=== PATIENT | male | born 1995 | race Asian ===

== ENCOUNTER 2022-12-03 03:04 | Observation (INO) ==
[2022-12-03] MEDS ORDERED: KETOROLAC TROMETHAMINE 15 MG/ML VIAL IV STA (03:37)
[2022-12-03] MEDS ORDERED: SODIUM CHLORIDE 0.9% 1000ML 1,000 ML IV ONE (03:37)
[2022-12-03 03:52] LABS: Basophils # (auto) 0.06 K/uL (0-0.2); Basophils % (auto) 0.6 %; Eosinophils # (auto) 0.28 K/uL (0-0.50); Eosinophils % (auto) 2.7 %; Hematocrit (blood only) 41.7 % (42.0-52.0); Hemoglobin 13.6 g/dl (14.0-18.0); Immature Granulocytes # (auto) 0.03 K/uL (0.01-0.20); Immature Granulocytes % (auto) 0.3 %; Lymphocytes # (auto) 3.54 K/uL (1.2-3.4); Lymphocytes % (auto) 34.5 %; Mean Corpuscular Hemoglobin 26.1 pg (25.0-34.0); Mean Corpuscular Hgb Conc 32.6 g/dL (32.0-36.0); Mean Corpuscular Volume 79.9 fL (80.0-100.0); Mean Platelet Volume 9.5 fL (9.4-12.4); Monocytes # (auto) 0.61 K/uL (0.11-0.59); Monocytes % (auto) 5.9 %; Neutrophils # (auto) 5.75 K/uL (1.40-6.50); Platelet Count 385 K/uL (130-400); RDW Coefficient of Variation 14.6 % (11.5-14.5); RDW Standard Deviation 42.4 fL (36.4-46.3); Red Blood Count 5.22 M/uL (4.70-6.10); White Blood Count 10.27 K/ul (4.8-10.8)
[2022-12-03 04:07] LABS: Alanine Aminotransferase 18 U/L (7-52); Albumin Globulin Ratio 1.5 (0.9-2); Albumin Level 4.4 gm/dl (3.4-5.0); Alkaline Phosphatase 69 U/L (34-104); Anion Gap 7 (3-11); Aspartate Aminotransferase 13 U/L (13-39); BUN Creatinine Ratio 17.1 (10-20); Bilirubin,Total 0.3 mg/dl (0.2-1.0); Blood Urea Nitrogen 12 mg/dl (6-23); Calcium 9.6 mg/dl (8.6-10.3); Carbon Dioxide 26 mmol/L (21-32); Chloride 104 mmol/L (98-107); Est GFR (African American) > 150.0 ml/min; Est GFR (Non-African American) 131.2 ml/min; Globulin 2.9 gm/dl (2.5-4.0); Glucose 104 mg/dl (70-99(Fasting)); Lipase 31 U/L (11-82); Potassium 3.9 mmol/L (3.5-5.1); Sodium 137 mmol/L (136-145); Total Protein 7.3 gm/dl (6.0-8.3)
[2022-12-03 04:13] LABS: Appearance Urine Clear (Clear); Bacteria Urine Automated Negative (Negative); Bilirubin Urine Negative (Negative); Blood Urine Negative (Negative); Color Urine Yellow; Epithelial Cell Urine Auto >30 /lpf (0-5); Glucose Urine UA Negative (Negative); Ketones Urine Negative (Negative); Leukocyte Esterase Urine Trace (Negative); Nitrite Urine Negative (Negative); Protein Urine Negative (Negative); Specific Gravity Urine 1.021 (1.000-1.030); Urobilinogen Urine Negative (Negative)
[2022-12-03 04:27] LABS: RBC Urine Automated 0-4 /hpf (0-4)
[2022-12-03] MEDS ORDERED: OPTIRAY 320 125ml IV ONE (04:30)
--- NOTE | 2022-12-03 04:31 | Emergency Department Note ---
ED Provider Note History of Present Illness Chief Complaint: GI Assessment Stated Complaint: LWR R QUAD PAIN Time Seen by Provider: 12/03/22 03:16 Source: patient Mode of arrival: ambulatory Limitations: no limitations This patient is a 27-year-old transgender male who presents to the emergency department for evaluation of right lower quadrant abdominal pain which woke him up from sleep this morning. Patient admits to having some GI issues over the past few days, mostly soft stools which he attributed to starting metformin this week. Pain is rated a 7/10 and is worse with movements or breathing. Patient denies urinary symptoms, nausea/vomiting or fevers/chills. He does report a history of PCOS. Home Medications Medication Instructions Recorded Confirmed Type albuterol 90 mcg/actuation aerosol See Rx Instructions .Route .COMPLEX 12/03/22 12/03/22 History inhaler cetirizine 10 mg capsule 10 mg PO DAILY 12/03/22 12/03/22 History desvenlafaxine succinate 50 mg 50 mg PO DAILY 12/03/22 12/03/22 History tablet,extended release 24 hr fluticasone propionate 50 See Rx Instructions .Route .COMPLEX 12/03/22 12/03/22 History mcg/actuation nasal spray,suspension hydroxyzine pamoate 50 mg capsule See Rx Instructions .Route .COMPLEX 12/03/22 12/03/22 History levonorgestrel 21 mcg/24 hours (8 See Rx Instructions .Route .COMPLEX 12/03/22 12/03/22 History yrs) 52 mg intrauterine device (Mirena) lisdexamfetamine 30 mg capsule 30 mg PO DAILY 12/03/22 12/03/22 History (Vyvanse) metformin 500 mg tablet,extended 500 mg PO BID 12/03/22 12/03/22 History release 24 hr methylphenidate HCl 10 mg tablet See Rx Instructions .Route .COMPLEX 12/03/22 12/03/22 History propranolol 60 mg capsule,24 60 mg PO DAILY 12/03/22 12/03/22 History hr,extended release sumatriptan succinate 50 mg tablet See Rx Instructions .Route .COMPLEX 12/03/22 12/03/22 History testosterone cypionate 200 mg/mL See Rx Instructions .Route .COMPLEX 12/03/22 12/03/22 History intramuscular oil Allergies Allergy/AdvReac Type Severity Reaction Status Date / Time hyoscyamine Allergy heart Unverified 12/03/22 10:02 palpitations Past Med/Surg History Medical History History of PCOS Transgender man on hormone therapy Surgical History S/P mastectomy, bilateral Social History Smoking Status: Never smoker Second Hand Exposure: No; Do You Dip or Chew Tobacco: No; Tobacco Cessation Education Requested by Patient: No Hx Alcohol Use: Yes Alcohol type: beer Hx Substance Use: No Preferred Language: Ethiopian Communication Ability: Effective 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 Beliefs That Will Affect Care: None Current Living Situation: Significant Other Other Information That Helps Us Care for You: No Feels Safe at Home: Yes Safety Concerns: Feels Safe At This Time Assistive Devices: None Physical Exam Vital Signs Vital Signs - 24 hr 12/03/22 03:35 12/03/22 04:45 12/03/22 04:46 Pulse Rate 84 86 86 Pulse Rate from SpO2 Sensor 86 Pulse Rhythm Regular Respiratory Rate 18 24 20 Blood Pressure 126/82 Blood Pressure Mean 96 Pulse Oximetry 98 97 Oxygen Delivery Method Room Air 12/03/22 04:44 12/03/22 05:16 12/03/22 05:30 Pulse Rate 87 81 95 H Pulse Rate from SpO2 Sensor 84 99 H Pulse Rhythm Respiratory Rate 18 20 Blood Pressure 120/62 Blood Pressure Mean 81 Pulse Oximetry 99 96 Oxygen Delivery Method 12/03/22 05:31 12/03/22 05:45 12/03/22 06:00 Pulse Rate 91 H 82 Pulse Rate from SpO2 Sensor 93 H 83 Pulse Rhythm Respiratory Rate 21 21 Blood Pressure 127/79 115/74 107/80 Blood Pressure Mean 95 87 99 Pulse Oximetry 99 96 Oxygen Delivery Method 12/03/22 06:00 12/03/22 06:15 12/03/22 06:15 Pulse Rate 84 88 Pulse Rate from SpO2 Sensor 86 91 H Pulse Rhythm Respiratory Rate 25 H 16 Blood Pressure 96/75 L Blood Pressure Mean 87 Pulse Oximetry 98 96 Oxygen Delivery Method 12/03/22 06:32 12/03/22 07:00 12/03/22 07:12 Pulse Rate 87 93 H Pulse Rate from SpO2 Sensor 85 93 H Pulse Rhythm Respiratory Rate 23 25 H Blood Pressure 130/90 Blood Pressure Mean 104 Pulse Oximetry 98 97 Oxygen Delivery Method 12/03/22 07:12 12/03/22 07:30 Pulse Rate 87 87 Pulse Rate from SpO2 Sensor 88 85 Pulse Rhythm Respiratory Rate 13 20 Blood Pressure Blood Pressure Mean Pulse Oximetry 97 95 Oxygen Delivery Method VITALS: Vitals are noted on the nurse's note and reviewed by myself. GENERAL: This is a 27-year-old male, in no acute distress, well-developed well- nourished. SKIN: The skin was without rashes. EYES: Pupils equal round and reactive to light and accommodation. MOUTH: Mucous membranes moist. HEART: Regular rate and rhythm without murmurs gallops or rubs. LUNGS: Clear to auscultation bilaterally without wheezes, rales or rhonchi. ABDOMEN: Positive bowel sounds x 4. Soft, moderate tenderness in the right lower quadrant. Patient reports that right lower quadrant pain is reproduced when other areas of the abdomen are palpated. No guarding or rebound tenderness. NEURO: Patient was alert and oriented to person place and time. Course Administered Medications Cefoxitin Sodium 2,000 mg/ (Dextrose) 60 mls @ 100 mls/hr IV Q6H YANG; Protocol Stop: 12/07/22 11:59 Last Infusion: 12/04/22 02:30 Dose: 0 mls/hr Documented By: Admin: 12/04/22 01:55 Dose: 100 mls/hr Documented By: Infusion: 12/03/22 19:25 Dose: 0 mls/hr Documented By: Admin: 12/03/22 18:47 Dose: 100 mls/hr Documented By: Infusion: 12/03/22 13:45 Dose: 0 mls/hr Documented By: Admin: 12/03/22 13:09 Dose: 100 mls/hr Documented By: JUDY Miscellaneous (Do Not Tube~Vyvanse~Order Awaiting Action) 1 each N/A QS YANG Stop: 01/02/23 15:59 Last Admin: 12/04/22 02:48 Dose: Not Given Documented By: Admin: 12/03/22 16:28 Dose: Not Given Documented By: ACP Miscellaneous (Desvenlafaxine~Order Awaiting Action) 1 each N/A QS YANG Stop: 01/02/23 15:59 Last Admin: 12/04/22 02:48 Dose: Not Given Documented By: Admin: 12/03/22 16:29 Dose: Not Given Documented By: ACP Discontinued Medications Bupivacaine HCl/Epinephrine Bitart (Bupivacaine/Epinephrine 0.5% Mpf 1:200,000 30 Ml Vial) Confirm Administered Dose 30 ml .ROUTE .STK-MED ONE Stop: 12/03/22 12:17 Last Admin: 12/03/22 13:38 Dose: 20 ml Documented By: MERYL Fentanyl Citrate (Fentanyl Citrate Pf 100 Mcg/2 Ml Vial) 25 mcg IV Q5M PRN PRN Reason: PACU Use Only-Pain Stop: 12/03/22 20:53 Last Admin: 12/03/22 14:13 Dose: 25 mcg Documented By: Admin: 12/03/22 14:08 Dose: 25 mcg Documented By: SED Fentanyl Citrate (Fentanyl Citrate Pf 100 Mcg/2 Ml Vial) Confirm Administered Dose 100 mcg .ROUTE .STK-MED ONE Stop: 12/03/22 14:10 Last Admin: 12/03/22 16:29 Dose: Not Given Documented By: ACP Sodium Chloride (Nss 1000ml) 1,000 mls @ 999 mls/hr IV .Q1H1M ONE Stop: 12/03/22 04:37 Last Infusion: 12/03/22 05:18 Dose: 0 mls/hr Documented By: Admin: 12/03/22 04:10 Dose: 999 mls/hr Documented By: CHARLA Cefoxitin Sodium (Mefoxin) 2,000 mg in 60 mls @ 100 mls/hr IV NOW STA Stop: 12/03/22 06:38 Last Infusion: 12/03/22 07:09 Dose: 0 mls/hr Documented By: Admin: 12/03/22 06:33 Dose: 100 mls/hr Documented By: CHARLA Ioversol (Optiray 320 125ml) 110 ml IV ONCE ONE Stop: 12/03/22 04:31 Last Admin: 12/03/22 04:31 Dose: 110 ml Documented By: KATIE Ketorolac Tromethamine (Ketorolac Tromethamine 15 Mg/Ml Vial) 15 mg IV NOW STA Stop: 12/03/22 03:38 Last Admin: 12/03/22 04:10 Dose: 15 mg Documented By: CHARLA Medical Decision Making Differential Diagnosis Differential diagnosis includes appendicitis, diverticulitis, bowel obstruction, inflammatory bowel disease, renal colic, PUD, biliary pathology, pancreatitis, mesenteric ischemia, aortic pathology, infection, genitourinary, UTI, perforated viscus, among others. Home Medications was personally reviewed by me Laboratory Data Attestation: I reviewed the patient's lab results. 12/03/22 03:30 12/03/22 03:30 Lab Results 12/03/22 12/03/22 12/03/22 Range/Units 03:30 03:30 03:30 WBC 10.27 (4.8-10.8) K/ul RBC 5.22 (4.70-6.10) M/uL Hgb 13.6 L (14.0-18.0) g/dl Hct 41.7 L (42.0-52.0) % MCV 79.9 L (80.0-100.0) fL MCH 26.1 (25.0-34.0) pg MCHC 32.6 (32.0-36.0) g/dL RDW Std Deviation 42.4 (36.4-46.3) fL RDW Coeff of Adeline 14.6 H (11.5-14.5) % Plt Count 385 (130-400) K/uL MPV 9.5 (9.4-12.4) fL Immature Gran % (Auto) 0.3 % Neut % (Auto) 56.0 % Lymph % (Auto) 34.5 % [place] % (Auto) 5.9 % Eos % (Auto) 2.7 % Baso % (Auto) 0.6 % Neut # (Auto) 5.75 (1.40-6.50) K/uL Lymph # (Auto) 3.54 H (1.2-3.4) K/uL [place] # (Auto) 0.61 H (0.11-0.59) K/uL Eos # (Auto) 0.28 (0-0.50) K/uL Baso # (Auto) 0.06 (0-0.2) K/uL Immature Gran # (Auto) 0.03 (0.01-0.20) K/uL Sodium 137 (136-145) mmol/L Potassium 3.9 (3.5-5.1) mmol/L Chloride 104 (98-107) mmol/L Carbon Dioxide 26 (21-32) mmol/L Anion Gap 7 (3-11) BUN 12 (6-23) mg/dl Creatinine 0.70 (0.6-1.4) mg/dl Est Cr Clr Drug Dosing 242.0 ml/min Est GFR ( Amer) > 150.0 ml/min Est GFR (Non-Af Amer) 131.2 ml/min BUN/Creatinine Ratio 17.1 (10-20) Glucose 104 H (70-99(Fasting)) mg/dl Calcium 9.6 (8.6-10.3) mg/dl Total Bilirubin 0.3 (0.2-1.0) mg/dl AST 13 (13-39) U/L ALT 18 (7-52) U/L Alkaline Phosphatase 69 (34-104) U/L Total Protein 7.3 (6.0-8.3) gm/dl Albumin 4.4 (3.4-5.0) gm/dl Globulin 2.9 (2.5-4.0) gm/dl Albumin/Globulin Ratio 1.5 (0.9-2) Lipase 31 (11-82) U/L Urine Color Yellow Urine Appearance Clear (Clear) Urine pH 5.0 (4.5-7.5) Ur Specific [place] 1.021 (1.000-1.030) Urine Protein Negative (Negative) Urine Glucose (UA) Negative (Negative) Urine Ketones Negative (Negative) Urine Blood Negative (Negative) Urine Nitrite Negative (Negative) Urine Bilirubin Negative (Negative) Urine Urobilinogen Negative (Negative) Ur Leukocyte Esterase Trace H (Negative) Urine WBC (Auto) 1-5 (0-5) /hpf Urine RBC (Auto) 0-4 (0-4) /hpf U Hyaline Cast (Auto) 1-5 (0-5) /lpf U Epithel Cells (Auto) >30 H (0-5) /lpf Urine Bacteria (Auto) Negative (Negative) POC Ur Test SARS-CoV-2, RNA, NAAT (NEGATIVE) 12/03/22 12/03/22 Range/Units 04:44 05:30 WBC (4.8-10.8) K/ul RBC (4.70-6.10) M/uL Hgb (14.0-18.0) g/dl Hct (42.0-52.0) % MCV (80.0-100.0) fL MCH (25.0-34.0) pg MCHC (32.0-36.0) g/dL RDW Std Deviation (36.4-46.3) fL RDW Coeff of Adeline (11.5-14.5) % Plt Count (130-400) K/uL MPV (9.4-12.4) fL Immature Gran % (Auto) % Neut % (Auto) % Lymph % (Auto) % [place] % (Auto) % Eos % (Auto) % Baso % (Auto) % Neut # (Auto) (1.40-6.50) K/uL Lymph # (Auto) (1.2-3.4) K/uL [place] # (Auto) (0.11-0.59) K/uL Eos # (Auto) (0-0.50) K/uL Baso # (Auto) (0-0.2) K/uL Immature Gran # (Auto) (0.01-0.20) K/uL Sodium (136-145) mmol/L Potassium (3.5-5.1) mmol/L Chloride (98-107) mmol/L Carbon Dioxide (21-32) mmol/L Anion Gap (3-11) BUN (6-23) mg/dl Creatinine (0.6-1.4) mg/dl Est Cr Clr Drug Dosing ml/min Est GFR ( Amer) ml/min Est GFR (Non-Af Amer) ml/min BUN/Creatinine Ratio (10-20) Glucose (70-99(Fasting)) mg/dl Calcium (8.6-10.3) mg/dl Total Bilirubin (0.2-1.0) mg/dl AST (13-39) U/L ALT (7-52) U/L Alkaline Phosphatase (34-104) U/L Total Protein (6.0-8.3) gm/dl Albumin (3.4-5.0) gm/dl Globulin (2.5-4.0) gm/dl Albumin/Globulin Ratio (0.9-2) Lipase (11-82) U/L Urine Color Urine Appearance (Clear) Urine pH (4.5-7.5) Ur Specific [place] (1.000-1.030) Urine Protein (Negative) Urine Glucose (UA) (Negative) Urine Ketones (Negative) Urine Blood (Negative) Urine Nitrite (Negative) Urine Bilirubin (Negative) Urine Urobilinogen (Negative) Ur Leukocyte Esterase (Negative) Urine WBC (Auto) (0-5) /hpf Urine RBC (Auto) (0-4) /hpf U Hyaline Cast (Auto) (0-5) /lpf U Epithel Cells (Auto) (0-5) /lpf Urine Bacteria (Auto) (Negative) POC Ur Test NEG SARS-CoV-2, RNA, NAAT NEGATIVE (NEGATIVE) Imaging Data Attestation: I personally reviewed and interpreted this imaging study as follows: Radiologist's Impression: Abdomen/Pelvis CT 12/03/22 03:35 CR Exam(s): CT ABDOMEN + PELVIS With Contrast IV Amt: 110ML OF OPTIRAY 320 EXAM: CT Abdomen and Pelvis With Intravenous Contrast CLINICAL HISTORY: Reason for exam: rlq pain. TECHNIQUE: Axial computed tomography images of the abdomen and pelvis with intravenous contrast. CTDI is 28.14 mGy and DLP is 1612.4 mGy-cm. Automated exposure control was utilized for the study. A dose lowering technique was utilized adhering to the principles of ALARA. CONTRAST: Patient received 110ML OF OPTIRAY 320 of IV contrast COMPARISON: No relevant prior studies available. FINDINGS: Lung bases: Unremarkable. No mass. No consolidation. ABDOMEN: Liver: Mild fatty infiltration of the liver and hepatomegaly measuring 19 cm craniocaudad. No focal liver lesion is seen. Gallbladder and bile ducts: Unremarkable. No calcified stones. No ductal dilation. Pancreas: Unremarkable. No mass. No ductal dilation. Spleen: Unremarkable. No splenomegaly. Adrenals: Unremarkable. No mass. Kidneys and ureters: Unremarkable. No solid mass. No hydronephrosis. Stomach and bowel: Unremarkable. No obstruction. No mucosal thickening. PELVIS: Appendix: The appendix is upper limits of normal in diameter measuring 1 cm. There appears to be slight surrounding fat stranding suspicious for early acute appendicitis. No signs of perforation or abscess. Bladder: Unremarkable. No mass. Reproductive: There is an IUD within the uterus which is otherwise unremarkable. No free fluid is seen within the pelvis. ABDOMEN and PELVIS: Intraperitoneal space: See above. Bones/joints: No acute fracture. No dislocation. Soft tissues: Unremarkable. Vasculature: Unremarkable. No abdominal aortic aneurysm. Lymph nodes: Unremarkable. No enlarged lymph nodes. IMPRESSION: The appendix is upper limits of normal in diameter measuring 1 cm. There appears to be slight surrounding fat stranding suspicious for early acute appendicitis. No signs of perforation or abscess. Communications: Call Doctor Above results Electronically signed by: Abner Jara MD 12/03/22 05:23 AM MDM Narrative This patient is a 27-year-old transgender male who presents to the emergency department for evaluation of right lower quadrant abdominal pain. Labs revealed no leukocytosis, anemia or concerning electrolyte abnormalities. CT of the abdomen/pelvis performed and reviewed by radiology and showed evidence of early appendicitis. Patient informed of the findings. Case discussed with the [facility] l surgeon on-call, Dr. Black, who agreed to evaluate the patient for further care. Patient was given a dose of Mefoxin. Impression Acute appendicitis Discharge Plan Visit Data Chief Complaint: GI Assessment Stated Complaint: LWR R QUAD PAIN ED Provider: Blu Mattson ED Midlevel Provider: Lisa Infante Discharge Problem: Acute appendicitis Patient Disposition: Admitted As Inpatient Discharge Instructions Interventions: ED Discharge Assessment Last Done: 12/03/22 10:35
--- NOTE | 2022-12-03 05:23 | CT Scan Report ---
Exam(s): CT ABDOMEN + PELVIS With Contrast IV Amt: 110ML OF OPTIRAY 320 EXAM: CT Abdomen and Pelvis With Intravenous Contrast CLINICAL HISTORY: Reason for exam: rlq pain. TECHNIQUE: Axial computed tomography images of the abdomen and pelvis with intravenous contrast. CTDI is 28.14 mGy and DLP is 1612.4 mGy-cm. Automated exposure control was utilized for the study. A dose lowering technique was utilized adhering to the principles of ALARA. CONTRAST: Patient received 110ML OF OPTIRAY 320 of IV contrast COMPARISON: No relevant prior studies available. FINDINGS: Lung bases: Unremarkable. No mass. No consolidation. ABDOMEN: Liver: Mild fatty infiltration of the liver and hepatomegaly measuring 19 cm craniocaudad. No focal liver lesion is seen. Gallbladder and bile ducts: Unremarkable. No calcified stones. No ductal dilation. Pancreas: Unremarkable. No mass. No ductal dilation. Spleen: Unremarkable. No splenomegaly. Adrenals: Unremarkable. No mass. Kidneys and ureters: Unremarkable. No solid mass. No hydronephrosis. Stomach and bowel: Unremarkable. No obstruction. No mucosal thickening. PELVIS: Appendix: The appendix is upper limits of normal in diameter measuring 1 cm. There appears to be slight surrounding fat stranding suspicious for early acute appendicitis. No signs of perforation or abscess. Bladder: Unremarkable. No mass. Reproductive: There is an IUD within the uterus which is otherwise unremarkable. No free fluid is seen within the pelvis. ABDOMEN and PELVIS: Intraperitoneal space: See above. Bones/joints: No acute fracture. No dislocation. Soft tissues: Unremarkable. Vasculature: Unremarkable. No abdominal aortic aneurysm. Lymph nodes: Unremarkable. No enlarged lymph nodes. IMPRESSION: The appendix is upper limits of normal in diameter measuring 1 cm. There appears to be slight surrounding fat stranding suspicious for early acute appendicitis. No signs of perforation or abscess. Communications: Call Doctor Above results Electronically signed by: Abner Jara MD 12/03/22 05:23 AM
[2022-12-03] MEDS ORDERED: cefOXitin 2,000 MG/60 ML BAG IV STA (06:03)
--- NOTE | 2022-12-03 07:45 | History & Physical Report ---
Date of Service December 03, 2022 Assessment & Plan (1) Acute appendicitis: Plan: IVF IV abx to OR for lap appendectomy restart home meds Present on Admission?: Yes History of Present Illness Primary Care Provider: Shawna Madera MD This patient is a 27-year-old transgender male who presents to the emergency department for evaluation of right lower quadrant abdominal pain which woke him up from sleep this morning. Patient admits to having some GI issues over the past few days, mostly soft stools which he attributed to starting metformin this week. The pain slowly progressed and is mainly right lower quadrant. He denies urinary symptoms, nausea/vomiting or fevers/chills. He has PCOS and insulin resistance and recently begun metformin. A CT scan shows early appendicitis.. Past Med/Surg History Medical History History of PCOS Transgender man on hormone therapy Surgical History S/P mastectomy, bilateral Social History Smoking Status: Never smoker Preferred Language: Malagasy Feels Safe at Home: Yes Review of Systems no fever, no chills and no anorexia no problem reported no problem reported no cough and no dyspnea no chest pain + abdominal pain; no nausea, no vomiting and no change in bowel habits no dysuria no back pain no problem reported no localized weakness and no generalized weakness no behavioral changes no easy bleeding and no easy bruising Physical Exam Constitutional: WD/WN, vitals as above Eyes: PERRL, conjunctivae normal, anicteric sclerae ENMT: external ear and nose normal, oropharynx normal Neck: trachea midline Respiratory: normal respiratory effort, lungs clear to auscultation Cardiovascular: RRR, no murmur, no edema Gastrointestinal (Abdomen): Inspection/Auscultation: abdomen normal to inspection and normal bowel sounds; abdomen not distended Pe rcussion/Palpation: + abdomen tender and abdomen soft; no guarding and abdomen not rigid Musculoskeletal: Head/Neck/Chest: normocephalic and head atraumatic Skin: no rashes, warm and dry Psychiatric: Orientation: alert and oriented x 3 ASA Classification ASA ASA2E Results & Data Vital Signs (Past 12 Hours) Vital Signs Temp Pulse Resp BP Pulse Ox O2 Del Method 12/03/22 05:45 82 21 115/74 96 12/03/22 05:31 91 H 21 127/79 99 12/03/22 05:30 95 H 20 120/62 96 12/03/22 05:16 81 18 99 12/03/22 04:44 87 12/03/22 04:46 86 20 126/82 97 12/03/22 04:45 86 24 12/03/22 03:35 84 18 98 Room Air 12/03/22 03:13 36.6 C 82 18 135/97 97 Room Air Diagnostic Findings Exam(s): CT ABDOMEN + PELVIS With Contrast IV Amt: 110ML OF OPTIRAY 320 EXAM: CT Abdomen and Pelvis With Intravenous Contrast CLINICAL HISTORY: Reason for exam: rlq pain. TECHNIQUE: Axial computed tomography images of the abdomen and pelvis with intravenous contrast. CTDI is 28.14 mGy and DLP is 1612.4 mGy-cm. Automated exposure control was utilized for the study. A dose lowering technique was utilized adhering to the principles of ALARA. CONTRAST: Patient received 110ML OF OPTIRAY 320 of IV contrast COMPARISON: No relevant prior studies available. FINDINGS: Lung bases: Unremarkable. No mass. No consolidation. ABDOMEN: Liver: Mild fatty infiltration of the liver and hepatomegaly measuring 19 cm craniocaudad. No focal liver lesion is seen. Gallbladder and bile ducts: Unremarkable. No calcified stones. No ductal dilation. Pancreas: Unremarkable. No mass. No ductal dilation. Spleen: Unremarkable. No splenomegaly. Adrenals: Unremarkable. No mass. Kidneys and ureters: Unremarkable. No solid mass. No hydronephrosis. Stomach and bowel: Unremarkable. No obstruction. No mucosal thickening. PELVIS: Appendix: The appendix is upper limits of normal in diameter measuring 1 cm. There appears to be slight surrounding fat stranding suspicious for early acute appendicitis. No signs of perforation or abscess. Bladder: Unremarkable. No mass. Reproductive: There is an IUD within the uterus which is otherwise unremarkable. No free fluid is seen within the pelvis. ABDOMEN and PELVIS: Intraperitoneal space: See above. Bones/joints: No acute fracture. No dislocation. Soft tissues: Unremarkable. Vasculature: Unremarkable. No abdominal aortic aneurysm. Lymph nodes: Unremarkable. No enlarged lymph nodes. IMPRESSION: The appendix is upper limits of normal in diameter measuring 1 cm. There appears to be slight surrounding fat stranding suspicious for early acute appendicitis. No signs of perforation or abscess. Code Status & VTE Plan VTE Prophylaxis Plan VTE Prophylaxis will be ordered: Yes
[2022-12-03] MEDS ORDERED: MoRPHine SULFATE 2 MG/ML CARP IV PRN (07:48)
[2022-12-03] MEDS ORDERED: ACETAMINOPHEN 325 MG TAB PO PRN (07:48)
[2022-12-03] MEDS ORDERED: IBUPROFEN 200 MG TAB PO PRN (07:48)
[2022-12-03] MEDS ORDERED: ALUMINUM/MAGNESIUM SUSP 30 ML UDC PO PRN (07:48)
[2022-12-03] MEDS ORDERED: ONDANSETRON INJ 2 MG/ML 2 ML VIAL IV PRN ×2 (07:48→12:53)
[2022-12-03] MEDS ORDERED: oxyCODONE/ACETAMINOPHEN 5mg/325mg TAB PO PRN ×2 (07:48)
[2022-12-03] MEDS ORDERED: MoRPHine SULFATE 4 MG/ML 1 ML CARP\\VIAL IV PRN (07:48)
--- NOTE | 2022-12-03 08:38 | Anesthesiology Consultation ---
Date of Service December 03, 2022 Assessment & Plan Chart Review Chart Review: Acceptable Risk for Surgery and Patient NOT seen in Pre Admission Testing Consults Requested none ASA ASA3 Proposed Anesthesia Anesthesia Type: General History Surgery Operation Date: 12/03/22 08:30 Proposed Procedures p Laparoscopic Appendectomy - Pasha Black MD Height/Weight Height: 5 ft 8 in Weight: 162.5 kg Past Medical History Medical History History of PCOS Transgender man on hormone therapy super morbid obesity Exercise / Class Metabolic Activity III < 4 Walking/Shop/Light housework Past Surgical History Surgical History S/P mastectomy, bilateral Past Anesthesia History No Hx of Anesthesia Complications and No Family Hx of Anesthesia Complications History of PONV No Hx of PONV and No Hx of Motion Sickness Social History Smoking Status: Never smoker Physical Exam Vital Signs Last Vital Signs Temp 36.6 C 12/03/22 03:13 Pulse 82 12/03/22 05:45 Resp 21 12/03/22 05:45 BP 115/74 12/03/22 05:45 Pulse Ox 96 12/03/22 05:45 O2 Del Method Room Air 12/03/22 03:35 Testing Laboratory Results 12/03/22 03:30 12/03/22 03:30 Urine Color Yellow 12/03/22 03:30 Urine Appearance Clear (Clear) 12/03/22 03:30 Urine pH 5.0 (4.5-7.5) 12/03/22 03:30 Ur Specific [place] 1.021 (1.000-1.030) 12/03/22 03:30 Urine Protein Negative (Negative) 12/03/22 03:30 Urine Glucose (UA) Negative (Negative) 12/03/22 03:30 Urine Ketones Negative (Negative) 12/03/22 03:30 Urine Nitrite Negative (Negative) 12/03/22 03:30 Ur Leukocyte Esterase Trace (Negative) H 12/03/22 03:30 Urine WBC (Auto) 1-5 /hpf (0-5) 12/03/22 03:30 Urine RBC (Auto) 0-4 /hpf (0-4) 12/03/22 03:30 U Hyaline Cast (Auto) 1-5 /lpf (0-5) 12/03/22 03:30 U Epithel Cells (Auto) >30 /lpf (0-5) H 12/03/22 03:30 Urine Bacteria (Auto) Negative (Negative) 12/03/22 03:30 12/03/22 04:44 POC Ur Test NEG
[2022-12-03] MEDS ORDERED: SUCCINYLCHOLINE CHLORIDE 20 MG/ML 10 ML VIAL IV ONE (08:53)
[2022-12-03] MEDS ORDERED: GLYCOPYRROLATE 0.2 MG/ML VIAL ONE (08:53)
[2022-12-03] MEDS ORDERED: ONDANSETRON INJ 2 MG/ML 2 ML VIAL ONE (08:53)
[2022-12-03] MEDS ORDERED: PROPOFOL IV EMULSION 10 MG/ML 20 ML VIAL IV ONE (08:53)
[2022-12-03] MEDS ORDERED: ROCURONIUM BROMIDE 10 MG/ML 5 ML VIAL IV ONE (08:53)
[2022-12-03] MEDS ORDERED: DEXAMETHASONE SOD INJ 4 MG/ML VIAL ONE (08:53)
[2022-12-03] MEDS ORDERED: fentaNYL citrate PF 100 MCG/2 ML VIAL ONE ×2 (08:54→14:09)
[2022-12-03] MEDS ORDERED: KETAMINE 50 MG/5 ML SYRINGE ONE (08:54)
[2022-12-03] MEDS ORDERED: SUGAMMADEX SODIUM 200 MG/2 ML VIAL IV ONE ×2 (08:54→08:55)
[2022-12-03] MEDS ORDERED: BUPIVACAINE/EPINEPHRINE 0.5% MPF 1:200,000 30 ML VIAL ONE (12:16)
[2022-12-03] MEDS ORDERED: HYDROmorphone INJ 1 MG/ML SYRINGE IV PRN (12:53)
[2022-12-03] MEDS ORDERED: PROMETHAZINE HCL 12.5 MG in SODIUM CHLORIDE 0.9% 50 ML IV PRN (12:53)
[2022-12-03] MEDS ORDERED: ePHEDrine sulfate 50 MG/ML AMP IV PRN (12:53)
[2022-12-03] MEDS ORDERED: FLUMAZENIL 0.1 MG/1 ML 10 ML VIAL IV PRN (12:53)
[2022-12-03] MEDS ORDERED: ATROPINE SULFATE 0.1 MG/ML 10ML SYR IV PRN (12:53)
[2022-12-03] MEDS ORDERED: NALOXONE HCL 0.4 MG/1 ML VIAL/CARP IV PRN (12:53)
[2022-12-03] MEDS: cefOXitin 2,000 MG in DEXTROSE 5% 50 ML IV SCH ×2 (13:09→18:47)
--- NOTE | 2022-12-03 13:44 | Post Operative Brief Note ---
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
[2022-12-03] MEDS: fentaNYL citrate PF 100 MCG/2 ML VIAL IV PRN ×2 (14:08→14:13)
--- NOTE | 2022-12-03 15:16 | Anesthesiology Progress Note ---
Date of Service December 03, 2022 Anesthesia Post Procedure Vital Signs Vital Signs: Temp Pulse Pulse Pulse Resp BP BP 12/03/22 15:05 37.3 C 100 H 16 128/85 12/03/22 14:50 87 19 131/83 12/03/22 14:40 36.2 C L 92 H 21 116/89 12/03/22 14:10 87 15 120/87 12/03/22 14:00 92 H 14 155/92 H 12/03/22 14:30 90 15 126/84 12/03/22 14:20 86 14 120/87 12/03/22 13:50 36.1 C L 98 H 9 L 16 144/98 H 12/03/22 11:03 36.9 C 92 H 16 138/87 12/03/22 10:00 93 H 19 12/03/22 10:00 113/79 12/03/22 09:30 99 H 29 H 12/03/22 09:00 91 H 23 12/03/22 08:56 25 H 12/03/22 08:01 89 23 12/03/22 08:01 130/94 12/03/22 08:00 91 H 19 12/03/22 07:30 87 20 12/03/22 07:12 87 13 12/03/22 07:12 130/90 12/03/22 07:00 93 H 25 H 12/03/22 06:32 87 23 12/03/22 06:15 88 16 12/03/22 06:15 96/75 L 12/03/22 06:00 84 25 H 12/03/22 06:00 107/80 12/03/22 05:45 82 21 115/74 12/03/22 05:31 91 H 21 127/79 12/03/22 05:30 95 H 20 120/62 12/03/22 05:16 81 18 12/03/22 04:44 87 12/03/22 04:46 86 20 126/82 12/03/22 04:45 86 24 12/03/22 03:35 84 18 12/03/22 03:13 36.6 C 82 18 135/97 Pulse Ox O2 Del Method O2 Flow Rate 12/03/22 15:05 94 Room Air 12/03/22 14:50 95 Room Air 12/03/22 14:40 94 Room Air 12/03/22 14:10 96 Oxymask 4 12/03/22 14:00 98 Oxymask 4 12/03/22 14:30 93 Room Air 12/03/22 14:20 93 Oxymask 2 12/03/22 13:50 96 Oxymask 6 12/03/22 11:03 96 Room Air 12/03/22 10:00 96 12/03/22 10:00 12/03/22 09:30 96 12/03/22 09:00 95 12/03/22 08:56 95 12/03/22 08:01 96 12/03/22 08:01 12/03/22 08:00 96 12/03/22 07:30 95 12/03/22 07:12 97 12/03/22 07:12 12/03/22 07:00 97 12/03/22 06:32 98 12/03/22 06:15 96 12/03/22 06:15 12/03/22 06:00 98 12/03/22 06:00 12/03/22 05:45 96 12/03/22 05:31 99 12/03/22 05:30 96 12/03/22 05:16 99 12/03/22 04:44 12/03/22 04:46 97 12/03/22 04:45 12/03/22 03:35 98 Room Air 12/03/22 03:13 97 Room Air Pain Intensity Abdomen: Pain Intensity: 2 Transfer of Care Handoff Completed per policy Notes Mental Status: alert / awake / arousable Patient Amnestic to Procedure: Yes Nausea / Vomiting: adequately controlled Pain: adequately controlled Airway Patency, RR, SpO2: stable & adequate BP & HR: stable & adequate Hydration State: stable & adequate Anesthetic Complications: no major complications apparent
[2022-12-03] MEDS: DESVENLAFAXINE~ORDER AWAITING ACTION SCH (16:29)
[2022-12-03] MEDS ORDERED: metFORMIN HCL ER 500 MG TABCR PO SCH (21:00)
[2022-12-04] MEDS: cefOXitin 2,000 MG in DEXTROSE 5% 50 ML IV SCH ×2 (01:55→06:08)
[2022-12-04] MEDS: DESVENLAFAXINE~ORDER AWAITING ACTION SCH ×2 (02:48→07:34)
[2022-12-04] MEDS: Patient's ALLERGY Info needs ENTERED SCH ×2 (07:35→07:37)
[2022-12-04] MEDS ORDERED: PROPRANOLOL HCL 60 MG LA CAP PO SCH (09:00)
[2022-12-04] MEDS ORDERED: CETIRIZINE HCL 10 MG TABLET PO SCH (09:00)
--- NOTE | 2022-12-04 10:23 | Discharge Summary ---
Date of Service December 04, 2022 Admission HPI Per Admitting Provider This patient is a 27-year-old transgender male who presents to the emergency department for evaluation of right lower quadrant abdominal pain which woke him up from sleep this morning. Patient admits to having some GI issues over the past few days, mostly soft stools which he attributed to starting metformin this week. The pain slowly progressed and is mainly right lower quadrant. He denies urinary symptoms, nausea/vomiting or fevers/chills. He has PCOS and insulin resistance and recently begun metformin. A CT scan shows early appendicitis.. Principal Diagnosis Acute appendicitis Discharge Exam Constitutional WD/WN, vitals as above + obese, cooperative and comfortable; no acute distress and not ill appearing Respiratory normal respiratory effort; no respiratory distress, no labored breathing and no retractions Gastrointestinal (Abdomen) Inspection/Auscultation: abdomen normal to inspection; abdomen not distended Percussion/Palpation: + abdomen tender (RLQ on deep palpation) Skin no rashes, warm and dry + incision (covered, clean/dry intact with mild spotting) Psychiatric A+Ox3, euthymic affect Discharge Data Allergies Allergy/AdvReac Type Severity Reaction Status Date / Time hyoscyamine Allergy heart Unverified 12/03/22 10:02 palpitations Procedures Performed Operation Date: 12/03/22 08:30 Actual Procedures p Laparoscopic Appendectomy(Not Applicable) - Pasha Black MD Ordered Studies 12/03/22 03:35 CT abd pelvis IV con only Stat Hospital Course (1) Acute appendicitis: Patient taken to operating room for laparoscopic appendectomy by Dr. Black on 12/03/2018. Patient found to have acute appendicitis without perforation or abscess. Patient tolerated procedure without difficulty and was transferred to recovery then to med/surg for postop care. IV antibiotics were continued, diet advanced as tolerated, activity as tolerated, pain management as needed. POD # 1 patient evaluated, afebrile, vss, pain minimal and controlled without pain medication, regular diet tolerated, urinating without difficulty. Patient was discharged home on POD # 1 in stable condition. Total Time Total Time Spent Total Time Spent (In Minutes): 30 minutes Total Time Includes: Examination of the Patient, Discharge Planning and Medication Reconciliation Discharge Plan Discharge Items Patient Disposition: Home - Self-Care Reason For Visit: LWR R QUAD PAIN Discharge Diagnosis: Acute appendicitis Activity: Per Instructions section Non-emergency contact: Primary Care Provider and Surgeon Call non-emergency contact if: you have any medication questions, your pain is not controlled, your pain is worsening, your pain is concerning for you, you have a fever, your temperature is above 101, your wound has increased redness, your wound has increased drainage and your wound pain has increased Follow-up/Referrals: Shawna Madera MD [Primary Care Provider] - Diet: Regular Addtl Attending Provider Instructions: Post-Surgical ~Discharge Instructions Activity Recommendations: - lifting limitation: (20 pounds for 4 weeks), - exercise/sex/sports limit: (nonstrenuous for 2 weeks), - driving or machine use limit: (none for 1 week, until pain free and no longer taking pain medication), - Shower/bathe limit: (may shower beginning tomorrow) Diet: - Resume previous diet SPECIAL CARE INSTRUCTIONS: - May shower in 24 hours. Let water run over area and pat dry. - Leave steri strips on for one week and then remove. - Call the surgeon's office with any questions or concerns - - (ex. temperature higher than 101 degrees F, excessive bleeding or pain). MEDICATIONS: - Resume previous medications unless instructed otherwise by your surgeon. - May alternate extra strength Tylenol and Ibuprofen as needed for mild to moderate pain -650 mg Tylenol every 6 hours as needed - Ibuprofen 600 mg every 6 hours as needed (take with food) - [place] 1 every 6 hours, as needed for moderate to severe pain - recommend daily stool softener (Colace) while taking narcotic pain medication to prevent constipation and straining. Drink plenty of water daily. FOLLOW UP VISIT: - If not already scheduled, please call the office to schedule a two week follow-up appointment. Office number Pending Studies at Discharge: Yes (pathology, will be reviewed at postop visit) Stand-Alone Forms: [employer], Work/School Release, Smoking Cessation Medications and DC Order Prescriptions: New hydrocodone-acetaminophen 5-325 mg tablet 1 tab PO Q6H PRN (Reason: pain) Qty: 5 0RF Continued Mirena 21 mcg/24 hours (8 yrs) 52 mg Intrauterine Device See Rx Instructions .ROUTE .COMPLEX Rx Instructions: Intrauterine methylphenidate HCl 10 mg tablet See Rx Instructions .ROUTE .COMPLEX Rx Instructions: Take 10mg by mouth up to 3 times a day as needed propranolol 60 mg capsule,extended release 24 hr 60 mg PO DAILY sumatriptan succinate 50 mg tablet See Rx Instructions .ROUTE .COMPLEX Rx Instructions: Take 1 tablet by mouth as needed for onset of migraine hydroxyzine pamoate 50 mg Capsule See Rx Instructions .ROUTE .COMPLEX Rx Instructions: Take 1 capsule by mouth as needed for panic attacks albuterol 90 mcg/actuation Aerosol See Rx Instructions .ROUTE .COMPLEX Rx Instructions: Take 2 puffs by mouth as needed for shortness of breath testosterone cypionate 200 mg/mL oil See Rx Instructions .ROUTE .COMPLEX Rx Instructions: Inject 50mg every 2 weeks fluticasone propionate 50 mcg/actuation spray,suspension See Rx Instructions .ROUTE .COMPLEX Rx Instructions: 2 sprays into each nostril once daily metformin 500 mg tablet extended release 24 hr 500 mg PO BID Vyvanse 30 mg capsule 30 mg PO DAILY desvenlafaxine succinate 50 mg tablet extended release 24 hr 50 mg PO DAILY cetirizine 10 mg Capsule 10 mg PO DAILY Discharge Orders: Discharge Order (Routine); Ordered 12/04/22 Ordered By: Katie Prather Admission Data Admit Date/Time: 12/03/22 07:50 Attending Provider: Pasha Black Admit Provider: Pasha Black Primary Care Provider: Shawna Madera
[2022-12-04] MEDS ORDERED: DOCUSATE SODIUM 100 MG CAP PO ONE (10:28)
--- NOTE | 2022-12-05 14:31 | Operative Report ---
Post Operative Report Pre & Post Diagnosis Operation Date: 12/03/22 08:30 Pre-Op Diagnosis: Acute appendicitis Post-Op Diagnosis: Acute appendicitis I identified the patient and participated in the time-out.: Yes Procedure Operation Date: 12/03/22 08:30 Actual Procedures p Laparoscopic Appendectomy(Not Applicable) - Pasha Black MD Surgeon Pasha Black MD Diversity Manager none Estimated Blood Loss 15 Findings Consistent with Post-Op Diagnosis Early acute appendicitis Specimens appendix to pathology Anesthesia Type General Complications none Indications This is a 27-year-old male who presents with acute abdominal pain. He was seen in the ED underwent a work-up which included a CT scan which showed an early acute appendicitis. I talked to him in detail about this and recommended laparoscopic appendectomy. We talked about the risk of open procedure abscess requiring drainage, bleeding and postop ileus. He understands this and wished to proceed. Description of Procedure The patient was taken to the OR and underwent excellent general anesthesia. His abdomen was prepped and draped in normal sterile fashion. Sterile transverse supraumbilical incision was made, towel clamps were used to create tension on the abdominal wall. A varies needle was inserted into his peritoneal cavity. Good pneumoperitoneum was achieved to about 15 mmHg pressure. Once this was don e visualized 11 port was placed in the supraumbilical position. A 11mm left lower quadrant port , a 5mm suprapubic port , and a 5mm right upper quadrant port were placed in normal fashion. Patient was then placed in head down and rolled to the left. Good diagnostic lap was performed. He had obvious acute appendicitis. The cecum was grasped with an atraumatic grasper. A grasper was then placed was then used to grasp the tip of the appendix. The mesoappendix was splayed open and a harmonic scalpel was used to take down the mesoappendix. This was taken down to the base of the appendix. Once this was identified an Endo HARMONY stapler was used to transect the appendix at its base. A Endobag was then inserted through the left lower quadrant port, the appendix was placed and then brought out through the left lower quadrant port. Appendix sent for pathologic valuation. Pneumoperitoneum and the port reestablished. A liter of saline was then used to irrigate the right lower quadrant. There was no active bleeding no other abnormalities were noted in the abdomen. Patient was then placed back and head down the ports were removed the needle and the and was then decompressed. The 12 port fascia was then closed using a 0 Vicryl. The skin was then anesthetized with 0.5% Marcaine with epinephrine local. Interrupted Vicryl is used to close the skin. Steri-Strips and benzoin were used to reinforce the incisions. Sterile dressings were applied. Patient tolerated procedure without complication was sent to the postop recovery period of observation. He will be sent to the floor for the rest of his care thank you since dictation of Mr. Vince Garcia I attest to the content of the Intraoperative Record and any orders documented therein. Any exceptions are noted below.
== END 2022-12-04 11:46 | disposition home or self-care (01) ==
LOC: 3W 03:04 → ED 03:04 → 3W 10:35